=== PATIENT | female | born 1965 | race American Indian/Alaskan Native ===

== ENCOUNTER 2021-10-08 10:29 | Outpatient (CLI) | payer MEDICAID | END 2021-10-08 10:30 | disposition home or self-care (01) | LOC: ECHO 10:29 | PROVIDERS: ATTEND Internal Medicine | DX: I08.8 Other rheumatic multiple valve diseases (principal); R60.9 Edema, unspecified; I10 Essential (primary) hypertension | CPT/HCPCS: 93306; C8929 ==